=== PATIENT | female | born 1970 | race Caucasian/White ===

== ENCOUNTER → 2016-06-02 | Outpatient (CLI) | payer OTHER ==
[~2016-06-02] MED LIST: DFL150 PO; DTRSR/10 PO; FLVHFA110 INH; HYDR-5688 PO; LISI-461 PO; LPT40 PO; OMEP20CA9 PO; SPIR1TAB71 PO; SPIR1TAB72 PO; TPRSR/50 PO; TRAM-10 PO; VNTHFA/IN INH; meloxicam PO
--- NOTE | 2016-06-02 13:14 | DIAGNOSTIC IMAGING REPORT ---
L-SPINE MIN 4 VIEWS ROUTINE CLINICAL HISTORY: Low back pain COMPARISON STUDY: 12/06/2010 FINDINGS: There are surgical clips within the right upper quadrant. There is an S1 spina bifida occulta. No acute fractures or subluxations are visualized. There are mild multilevel degenerative changes. No destructive lesions are evident. IMPRESSION: Mild multilevel degenerative change. No fractures, subluxations, or destructive lesions are visualized. Electronically signed by: Vish Beal M.D. 06/02/2016 1:13 PM Dictated Date/Time: 06/02/2016 1:12 PM
== END | disposition home or self-care (01) ==
LOC: C.RADBC 10:41
PROVIDERS: ATTEND Anesthesiology
DX: M54.5 Low back pain (principal)

== ENCOUNTER → 2016-09-06 | Outpatient (CLI) | payer OTHER ==
[~2016-09-06] MED LIST changes: -DFL150 PO; -DTRSR/10 PO; -HYDR-5688 PO; -SPIR1TAB71 PO
== END | disposition home or self-care (01) ==
LOC: C.LABSPEC 12:41
PROVIDERS: ATTEND Internal Medicine
DX: J02.9 Acute pharyngitis, unspecified (principal)

== ENCOUNTER → 2016-12-13 | Outpatient (CLI) | payer OTHER ==
[2016-12-13 12:26] LABS: ALT/SGPT 123 U/L (12-78); BLOOD UREA NITROGEN 24 mg/dl (7-18); BUN/CREATININE RATIO 18.5 (10-20); CALCIUM 8.7 mg/dl (8.5-10.1); CARBON DIOXIDE 25 mmol/L (21-32); CHLORIDE 106 mmol/L (98-107); CHOLESTEROL 144 mg/dl (0-200); GLUCOSE 136 mg/dl (70-99); POTASSIUM 3.8 mmol/L (3.5-5.1); SODIUM 139 mmol/L (136-145); TRIGLYCERIDES 177 mg/dl (0-150); VERY LOW DENSITY LIPOPROT CALC 35 mg/dl
[2016-12-13 12:29] LABS: ALB/GLOB RATIO 0.9 (0.9-2); ALKALINE PHOSPHATASE 67 U/L (45-117); AST/SGOT 98 U/L (15-37); CHOLESTEROL/HDL RATIO 5.3; HDL CHOLESTEROL 27 mg/dl; LDL CHOLESTEROL CALCULATED 82 mg/dl
== END | disposition home or self-care (01) ==
LOC: C.LABBFT 07:48
PROVIDERS: ATTEND Internal Medicine
DX: Z00.00 Encounter for general adult medical examination without abnormal findings (principal); E78.5 Hyperlipidemia, unspecified; I10 Essential (primary) hypertension

== ENCOUNTER → 2016-12-14 | Outpatient (CLI) | payer OTHER ==
[2016-12-14 12:19] LABS: BASO % 0.7 %; BASO ABS # 0.05 K/uL (0-0.2); COMPLETE YES; EOS % 3.8 %; HEMATOCRIT 40.6 % (37-47); IG% 0.3 %; LYMPH % 30.8 %; LYMPH ABS # 2.34 K/uL (1.2-3.4); MEAN CELL VOLUME 95.8 fL (80-100); MEAN CORPUSCULAR HEMOGLOBIN 31.6 pg (25-34); MEAN PLATELET VOLUME 10.6 fL (7.4-10.4); NEUT % 60.4 %; PLATELET COUNT 275 K/uL (130-400); RED BLOOD COUNT 4.24 M/uL (4.2-5.4); WHITE BLOOD COUNT 7.59 K/uL (4.8-10.8)
[2016-12-14 12:42] LABS: ESTIMATED AVERAGE GLUCOSE 157 mg/dl; HA1C FLAG Normal (Normal)
[2016-12-14 12:46] LABS: BLOOD UREA NITROGEN 20 mg/dl (7-18)
== END | disposition home or self-care (01) ==
LOC: C.LABBFT 11:06
PROVIDERS: ATTEND Internal Medicine
DX: N93.8 Other specified abnormal uterine and vaginal bleeding (principal); E78.5 Hyperlipidemia, unspecified; R79.89 Other specified abnormal findings of blood chemistry; R73.01 Impaired fasting glucose; R94.5 Abnormal results of liver function studies

== ENCOUNTER → 2016-12-15 | Outpatient (CLI) | payer OTHER ==
[2016-12-15 12:27] LABS: URINE APPEARANCE CLEAR (CLEAR); URINE BILIRUBIN NEG (NEG); URINE COLOR YELLOW; URINE EPITHELIAL CELL AUTO >30 /lpf (0-5); URINE NITRITE NEG (NEG); URINE SPECIFIC GRAVITY 1.022 (1.000-1.030); UROBILINOGEN NEG (NEG)
[2016-12-15 12:32] LABS: REVIEW REQ? YES
[2016-12-15 12:33] LABS: MANUAL MICROSCOPIC REQUIRED? NO
== END | disposition home or self-care (01) ==
LOC: C.LABBFT 10:04
PROVIDERS: ATTEND Internal Medicine
DX: N93.8 Other specified abnormal uterine and vaginal bleeding (principal); E78.5 Hyperlipidemia, unspecified; R79.89 Other specified abnormal findings of blood chemistry; R73.01 Impaired fasting glucose; R94.5 Abnormal results of liver function studies

== ENCOUNTER → 2017-03-19 | Outpatient (CLI) | payer OTHER ==
[2017-03-19 17:17] LABS: ALT/SGPT 120 U/L (12-78); AST/SGOT 90 U/L (15-37); BLOOD UREA NITROGEN 14 mg/dl (7-18); BUN/CREATININE RATIO 12.5 (10-20); CALCIUM 7.8 mg/dl (8.5-10.1); CARBON DIOXIDE 23 mmol/L (21-32); CHLORIDE 105 mmol/L (98-107); CREATININE 1.13 mg/dl (0.60-1.20); GLUCOSE 183 mg/dl (70-99); POTASSIUM 4.1 mmol/L (3.5-5.1); SODIUM 139 mmol/L (136-145)
[2017-03-19 17:20] LABS: ALB/GLOB RATIO 0.8 (0.9-2); ALKALINE PHOSPHATASE 69 U/L (45-117)
[2017-03-20 05:56] LABS: ESTIMATED AVERAGE GLUCOSE 151 mg/dl; HA1C FLAG Normal (Normal)
== END | disposition home or self-care (01) ==
LOC: C.LABBFT 13:08
PROVIDERS: ATTEND Internal Medicine
DX: E78.5 Hyperlipidemia, unspecified (principal); I10 Essential (primary) hypertension; E11.9 Type 2 diabetes mellitus without complications; R79.89 Other specified abnormal findings of blood chemistry

== ENCOUNTER → 2017-03-20 | Outpatient (CLI) | payer OTHER ==
[2017-03-20 13:34] LABS: BLOOD UREA NITROGEN 11 mg/dl (7-18); BUN/CREATININE RATIO 10.9 (10-20); CALCIUM 8.5 mg/dl (8.5-10.1); CARBON DIOXIDE 22 mmol/L (21-32); CHLORIDE 107 mmol/L (98-107); GLUCOSE 146 mg/dl (70-99); POTASSIUM 3.7 mmol/L (3.5-5.1); SODIUM 139 mmol/L (136-145)
== END | disposition home or self-care (01) ==
LOC: C.LABBFT 10:20
PROVIDERS: ATTEND Internal Medicine
DX: I10 Essential (primary) hypertension (principal); E83.51 Hypocalcemia

== ENCOUNTER → 2017-03-29 | Outpatient (CLI) | payer OTHER ==
--- NOTE | 2017-03-29 12:07 | DIAGNOSTIC IMAGING REPORT ---
ULTRASOUND RIGHT UPPER QUADRANT ABDOMEN CLINICAL HISTORY: Elevated hepatic transaminases. COMPARISON STUDY: Abdominal CT dated 12/09/2013. TECHNIQUE: Real-time, grayscale, and color flow sonography of the right upper quadrant of the abdomen was performed. Images are reviewed in the transverse and longitudinal planes. FINDINGS: Liver: The liver is enlarged measuring over 20 cm in length. The liver demonstrates heterogeneously increased echotexture consistent with severe hepatic steatosis. Note that this degrades acoustic penetration of liver. There is no intrahepatic biliary ductal dilatation. The main portal vein is patent. Gallbladder: The gallbladder is surgically absent. The common bile duct measures up to 0.9 cm in diameter. Pancreas: Visualized portions of the pancreatic head and body are normal in appearance. Right kidney: Survey images of the right kidney demonstrate normal size and echotexture. There is no hydronephrosis. Ascites: None. IMPRESSION: 1. Hepatomegaly and severe hepatic steatosis. 2. The gallbladder surgically absent. Electronically signed by: Ziggy Salinas M.D. 03/29/2017 12:06 PM Dictated Date/Time: 03/29/2017 12:05 PM
== END | disposition home or self-care (01) ==
LOC: C.ULTR 11:24
PROVIDERS: ATTEND Internal Medicine
DX: R79.89 Other specified abnormal findings of blood chemistry (principal)

== ENCOUNTER 2017-06-03 12:29 | Emergency (ER) | payer OTHER ==
[~2017-06-03] VITALS: Ht 157.5 cm; Wt 125.0 kg
[2017-06-03 12:32] VITALS: TEMP 36.5; Ht 157.5 cm; Wt 125.0 kg
[2017-06-03 12:57] VITALS: O2SAT 97
[2017-06-03 13:11] LABS: HEMATOCRIT 45.4 % (37-47); HEMOGLOBIN 15.4 g/dL (12.0-16.0); MEAN CELL VOLUME 91.9 fL (80-100); MEAN CORPUSCULAR HEMOGLOBIN 31.2 pg (25-34); MEAN CORPUSCULAR HGB CONC 33.9 g/dl (32-36); MEAN PLATELET VOLUME 10.5 fL (7.4-10.4); PLATELET COUNT 236 K/uL (130-400); RED CELL DISTRIBUTION WIDTH CV 13.3 % (11.5-14.5); RED CELL DISTRIBUTION WIDTH SD 44.5 fL (36.4-46.3); WHITE BLOOD COUNT 11.11 K/uL (4.8-10.8)
--- NOTE | 2017-06-03 13:15 | DIAGNOSTIC IMAGING REPORT ---
CHEST ONE VIEW PORTABLE CLINICAL HISTORY: 46 years-old Female presenting with C01b - Chest pain. TECHNIQUE: Portable upright AP view of the chest was obtained. COMPARISON: 11/18/2015. FINDINGS: Cardiomediastinal silhouette normal. Lungs and pleural spaces clear. Osseous structures normal. Cholecystectomy clips noted. IMPRESSION: 1. No acute cardiopulmonary disease. Electronically signed by: Demond Gill M.D. 06/03/2017 1:13 PM Dictated Date/Time: 06/03/2017 1:13 PM
[2017-06-03 13:19] LABS: ALBUMIN 3.3 gm/dl (3.4-5.0); ALT/SGPT 94 U/L (12-78); AST/SGOT 88 U/L (15-37); BLOOD UREA NITROGEN 24 mg/dl (7-18); CALCIUM 8.1 mg/dl (8.5-10.1); CARBON DIOXIDE 23 mmol/L (21-32); CREATININE 1.32 mg/dl (0.60-1.20); GLUCOSE 164 mg/dl (70-99); POTASSIUM 4.2 mmol/L (3.5-5.1); SODIUM 135 mmol/L (136-145)
[2017-06-03 13:23] LABS: ALKALINE PHOSPHATASE 71 U/L (45-117); CKMB 0.8 ng/ml (0.5-3.6); PTT PATIENT 26.4 SECONDS (21.0-31.0); TOTAL PROTEIN 7.8 gm/dl (6.4-8.2)
[2017-06-03] MEDS ORDERED: OPTIRAY 320 IV PRN (13:30)
[2017-06-03] MEDS ORDERED: ONDANSETRON INJ 2 MG/ML 2 ML VIAL IV STA (14:12)
[2017-06-03] MEDS ORDERED: SODIUM CHLORIDE 0.9% 500ML 500 ML IV STA (14:12)
[2017-06-03] MEDS ORDERED: MoRPHine SULFATE 4 MG/ML 1 ML CARP\\VIAL IV STA (14:12)
--- NOTE | 2017-06-03 14:12 | EMERGENCY ROOM VISIT NOTE ---
History First contact with patient: 13:03 Chief Complaint: CHEST PAIN Stated Complaint: CHEST PAIN, PAIN IN JAW/NECK, FLANK, VOMITING Nursing Triage Summary: Patient c/o of palpitations, chest, Back, neck, and right arm pain since last night. Dizziness and SOB. History of Present Illness The patient is a 46 year old female who presents to the Emergency Room with complaints of chest pain that started around 9 AM yesterday morning. She describes the chest pain as an ache with occasional sharp shooting pains, constant, starts under her left breast and wraps around to her left upper back, worse with lying down, better with sitting up, 8/10. She has taken her prescribed tramadol, with no improvement in the pain. She states that she has had associated heart palpitations which is not unusual for her, but has also been having shortness of breath, dizziness, and feeling very fatigued, which is new. She states she has been feeling exhausted for the past few days, and today it took her over 20 minutes to get dressed because of fatigue. She also reports some pain in her right leg that started yesterday. She states this morning around 4 AM she woke up feeling nauseated and vomited several times. She did not take any of her prescribed medications today because of the nausea and vomiting. The patient is followed by Dr. Amador, retirement assistant, regarding her palpitations and family history of cardiomyopathy. She reports echocardiogram and EKG that were done 6 months ago that she believes were normal. She denies any headaches, vision changes, abdominal pain, diarrhea, bloody or black stools , hemoptysis, syncope, urinary symptoms, or rash. She does note some recent URI symptoms of cough and congestion last week, states these have gotten better. She denies any fevers, but has had some chills. She also notes for the past 4 months she has been dealing with a dental infection, she states she was treated with antibiotics 3 months ago, but the infection has come back, and she states she has been "poking a toothpick in the gums every day and pus comes out." Review of Systems A complete 10 point review of systems was reviewed with the patient with pertinent positives and negatives as per history of present illness. All else were negative. Past Medical/Surgical History Medical Problems: (1) Acute bronchitis (2) Asthma (3) Asthma with exacerbation (4) Asthmatic bronchitis (5) Benign hypertension (6) Bladder infection (7) Contusion of ribs (8) Fall (9) Fall (10) Female bladder prolapse (11) Female bladder prolapse (12) Finger laceration (13) Fracture of fifth finger, right, closed (14) Headache (15) Headache (16) Heart disease (17) Heel pain (18) Hyperlipidemia (19) Ovarian cyst (20) Ovarian cyst (21) Pharyngitis (22) Pneumonia (23) Rib contusion (24) Rib injury (25) Rib pain on right side (26) Urinary tract infection (27) UTI (urinary tract infection) (28) Work related injury Surgical Problems: (1) Cholecystectomy (2) History of - tubal ligation Family History Diabetes mellitus FH: gallbladder disease FH: heart disease FH: lung disease FHx: cancer Hypertension Seizures Social History Smoking Status: Never Smoker Alcohol Use: occasionally Drug Use: none Marital Status: Housing Status: lives with family Occupation Status: employed Current/Historical Medications Scheduled Atorvastatin (Lipitor), 40 MG PO DAILY Doxycycline Hyclate (Vibramycin), 100 MG PO BID Fluticasone Propionate (Flovent Hfa), 2 PUFFS INH BID Hctz/Spironolactone (Spironolactone/Hydrochlor 25-25 mg), 1 TAB PO DAILY Lisinopril (Lisinopril), 10 MG PO DAILY Meloxicam (Meloxicam), 15 MG PO DAILY Metformin Hcl (Glucophage), 500 MG PO BID Metoprolol Succinate (Metoprolol Succinate ER), 50 MG PO DAILY Omeprazole (Prilosec), 20 MG PO DAILY Scheduled PRN Albuterol Hfa (Ventolin Hfa), 2 PUFFS INH Q4H PRN for SOB/Wheezing Albuterol Sulf (Proventil 0.083% 2.5MG/3ML), 2.5 MG INH Q4H PRN for SOB/Wheezing Tramadol (Ultram), 50 MG PO TID PRN for Pain Allergies No known allergies Physical Exam Vital Signs Date Time Temp Pulse Resp B/P (MAP) Pulse Ox O2 Delivery O2 Flow Rate FiO2 06/03/17 18:59 118 18 117/76 96 06/03/17 17:59 111 24 132/99 95 Room Air 06/03/17 16:47 113 24 133/94 93 Room Air 06/03/17 15:19 113 24 141/94 93 Room Air 06/03/17 14:24 123 19 95 06/03/17 14:19 114 24 133/94 93 Room Air 06/03/17 14:19 133/94 06/03/17 14:17 164/129 06/03/17 13:59 115 17 06/03/17 13:29 124 16 06/03/17 13:00 97 Room Air 06/03/17 12:59 117 13 06/03/17 12:58 97 Room Air 06/03/17 12:57 97 Room Air 06/03/17 12:47 115 06/03/17 12:32 36.5 138 24 163/135 97 Room Air Physical Exam CONSTITUTIONAL: Pleasant and cooperative. No acute distress, but appears uncomfortable throughout exam. Mildly dehydrated, but otherwise well appearing and well nourished. Obese. HEENT: Normocephalic, atraumatic. Pupils equal, round and reactive to light, EOMI. TMs normal. Pharynx normal. Tacky mucous membranes. Poor dentition with multiple dental fractures and carious teeth. The left upper incisor is broken off at the gums, with mild gingival erythema and swelling. No purulent discharge noted. No periapical abscess noted. NECK: Supple, full active range of motion without discomfort. RESPIRATORY: Clear to auscultation bilaterally with no wheezing, crackles, rhonchi or stridor. Equal expansion bilaterally. CARDIOVASCULAR: Tachycardic. Regular rhythm with no murmurs, rubs or gallops. Normal peripheral perfusion. No edema. GASTROINTESTINAL: Soft, nontender, nondistended. No palpable masses or HSM. Bowel sounds present in all quadrants. MUSCULOSKELETAL: Full range of motion of all joints without discomfort. Tenderness to palpation of the right posterior calf. No erythema, warmth, or swelling appreciated. INTEGUMENTARY: No rash or other significant dermatologic conditions noted. NEUROLOGIC: Alert and oriented X 4 with normal affect. Cranial nerves II-XII grossly intact. No focal neurologic deficits noted. Normal strength and sensation in all 4 extremities. Normal speech. Normal gait observed. Medical Decision & Procedures ER Provider Diagnostic Interpretation: CHEST ONE VIEW PORTABLE CLINICAL HISTORY: 46 years-old Female presenting with C01b - Chest pain. TECHNIQUE: Portable upright AP view of the chest was obtained. COMPARISON: 11/18/2015. FINDINGS: Cardiomediastinal silhouette normal. Lungs and pleural spaces clear. Osseous structures normal. Cholecystectomy clips noted. IMPRESSION: 1. No acute cardiopulmonary disease. ----- (CHEST FOR PE) ANGIO WITH CLINICAL HISTORY: 46 years-old Female presenting with ^left sided CP, SOB, tachycardic, eval PE. TECHNIQUE: Multidetector CT angiography of the chest was performed after administration of intravenous contrast. 3-D volumetric and/or maximum intensity projection (MIP) images were subsequently reconstructed for review. IV contrast: 97 mL of Optiray 320. A dose lowering technique was used consistent with the principles of ALARA (as low as reasonably achievable). COMPARISON: Chest x-ray performed earlier the same day. CT DOSE (mGy.cm): The estimated cumulative dose is 610.06 mGy.cm. FINDINGS: [employer] Agent topogram: Surgical clips project over the right upper quadrant. Pulmonary vasculature: The study is suboptimal for the assessment of the pulmonary vascular tree secondary to respiratory motion artifact. Allowing for limited image quality, no central filling defect to suggest pulmonary embolus. Main pulmonary artery is not enlarged. No flattening of the interventricular septum. No intracardiac filling defect. No reflux of contrast into the hepatic veins. Remaining chest: On soft tissue windows, normal thyroid and thoracic inlet. No axillary, supraclavicular, hilar, or mediastinal lymphadenopathy. Normal aorta. Normal heart size. No pericardial or pleural effusion. Hepatic steatosis. Cholecystectomy clips. On lung windows, patchy groundglass opacity at the lung apices. Evaluation degraded by motion artifact. On bone windows, degenerative changes of the spine. IMPRESSION: 1. Allowing for suboptimal image quality, no evidence of pulmonary embolus. 2. Patchy groundglass opacity at the lung apices raises concern for infection. Atypical/viral pneumonia could cause this appearance among other potential etiologies. 3. Hepatic steatosis. ----- R VENOUS DOPP LOWER EXT UNILAT CLINICAL HISTORY: 46 years-old Female presenting with right calf pain. TECHNIQUE: Real-time grayscale and color and spectral Doppler ultrasound imaging of the veins of the right lower extremity was performed. Compression and augmentation were also utilized. COMPARISON: None. FINDINGS: Right: Common femoral vein: Patent. Greater saphenous vein: Patent. Deep femoral vein: Patent. Femoral vein: Patent. Popliteal vein: Patent. Calf veins: Patent. Other: None. IMPRESSION: No evidence of deep venous thrombosis. Laboratory Results 06/03/17 12:47 06/03/17 12:47 Test 06/03/17 12:47 06/03/17 15:40 Red Blood Count 4.94 M/uL (4.2-5.4) Mean Corpuscular Volume 91.9 fL (80-100) Mean Corpuscular Hemoglobin 31.2 pg (25-34) Mean Corpuscular Hemoglobin Concent 33.9 g/dl (32-36) RDW Standard Deviation 44.5 fL (36.4-46.3) RDW Coefficient of Variation 13.3 % (11.5-14.5) Mean Platelet Volume 10.5 fL (7.4-10.4) Erythrocyte Sedimentation Rate 51 mm/hr (0-21) Prothrombin Time 10.5 SECONDS (9.0-12.0) Prothromb Time International Ratio 1.0 (0.9-1.1) Activated Partial Thromboplast Time 26.4 SECONDS (21.0-31.0) Partial Thromboplastin Ratio 1.0 Anion Gap 9.0 mmol/L (3-11) Est Creatinine Clear Calc Drug Dose 68.0 ml/min Estimated GFR () 56.3 Estimated GFR (Non- 48.6 BUN/Creatinine Ratio 18.2 (10-20) Calcium Level 8.1 mg/dl (8.5-10.1) Total Bilirubin 0.8 mg/dl (0.2-1) Aspartate Amino Transf (AST/SGOT) 88 U/L (15-37) Alanine Aminotransferase (ALT/SGPT) 94 U/L (12-78) Alkaline Phosphatase 71 U/L (45-117) Total Creatine Kinase 225 U/L (26-192) Creatine Kinase MB 0.8 ng/ml (0.5-3.6) Creatine Kinase MB Ratio 0.4 (0-3.0) C-Reactive Protein 2.63 mg/dl (0-0.29) Total Protein 7.8 gm/dl (6.4-8.2) Albumin 3.3 gm/dl (3.4-5.0) Globulin 4.5 gm/dl (2.5-4.0) Albumin/Globulin Ratio 0.7 (0.9-2) Lipase 254 U/L (73-393) Procalcitonin 0.22 ng/ml (0-0.5) Human Chorionic Gonadotropin, Qual NEG (NEG) Troponin I < 0.015 ng/ml (0-0.045) Medications Administered Medications (Trade) Dose Ordered Sig/Gregorio Route Start Time Stop Time Status Last Admin Dose Admin Sodium Chloride 500 ml @ 999 mls/hr Q31M STAT IV 06/03/17 14:12 06/03/17 14:42 DC 06/03/17 14:32 999 MLS/HR Morphine Sulfate (MoRPHine SULFATE INJ) 4 mg NOW STAT IV 06/03/17 14:12 06/03/17 14:14 DC 06/03/17 15:49 4 MG Ondansetron HCl (Zofran Inj) 4 mg NOW STAT IV 06/03/17 14:12 06/03/17 14:14 DC 06/03/17 14:32 4 MG Doxycycline Hyclate (Vibramycin Cap) 100 mg NOW STAT PO 06/03/17 17:46 06/03/17 17:48 DC 06/03/17 17:58 100 MG ECG Indication: chest pain, SOB/dyspnea, tachycardia Rate (beats per minute): 124 Rhythm: sinus tachycardia Findings: nonspecific-ST abn (Lateral), Q waves (Inferior and anterior) Change: When compared to EKG from 11/18/2015, the inferior infarct and anterior infarct are now present and normal sinus rhythm is replaced with sinus tachycardia. Nonspecific ST changes in the lateral leads also appear to be new. Medical Decision CC: Patient presenting with complaint of chest pain, shortness of breath Interpretation of Labs: Mild leukocytosis, no anemia, no significant electrolyte abnormalities, mildly elevated BUN and creatinine, mildly elevated transaminase, normal T bili, normal lipase. Elevated inflammatory markers. Normal pro-calcitonin level. Troponin negative 2. Normal coagulation factors. Negative serum . Differential Diagnosis: Includes, but not limited to acute coronary syndrome, pulmonary embolism, pneumothorax, pericarditis, myocarditis, endocarditis, anxiety, musculoskeletal pain, GERD, costochondritis, pneumonia, cardiac arrhythmia, dehydration, electrolyte abnormality, anemia, among others. Medication Reconciliation: I attest that I have personally reviewed the patient' s current medication list. Initial vital signs review: I reviewed the patient's vital signs and interpret them as follows: T: Afebrile; BP: Hypertensive; HR: Tachycardic; RR: Tachypneic; Pulse Ox: Within normal limits on room air. Blood pressure screening: The patient was found to have an elevated blood pressure and was referred to their primary doctor for recheck and further treatment. Summary: Patient was evaluated at bedside, history and physical exam performed. Patient is alert and oriented, no acute distress, resting calmly in the stretcher. Patient is noted to be quite tachycardic, with heart rates in the 130s to 140s. She states that her baseline heart rate is low 100s, and she did not take her medications today. Lungs are clear, diminished in the bases. No abnormal heart sounds on auscultation. Patient appears mildly dehydrated. She is noted to have very poor dentition. EKG reviewed at bedside, noting sinus tachycardia with inferior and anterior Q waves noted by my interpretation. Orders were placed at bedside for labs, blood cultures 3, chest x-ray, chest CT to evaluate for PE. IV morphine and Zofran were ordered for pain and nausea, IV normal saline bolus for hydration. Patient discussed with Dr. Deshpande, who agrees with my assessment and plan. Labs reviewed as above, noting mild leukocytosis and elevation inflammatory markers. Troponin is negative x2 with constant chest pain for more than 12 hours. Chest x-ray is unremarkable. CT of the chest is negative for pulmonary embolus, but does note some basilar ground glass opacities which may represent an early infectious process. EKG is compared to previous, inferior and anterior infarct appeared to be new compared to an EKG from 1.5 years ago. I spoke with Dr. Gonzalez, retirement assistant, who reviewed the patient's chart and feels that her EKG changes are not significant when compared to other previous EKGs on their records. He also feels ACS is unlikely due to the length of her symptoms with negative cardiac markers. I discussed all results with the patient and plan for discharge. Given the concern for possible atypical pneumonitis on CT, will treat the patient with doxycycline, first dose given in the ED and Rx sent to pharmacy Patient reassessed multiple times throughout ED stay, she reports that her symptoms have much improved while being in the emergency department. She states her dizziness resolved after receiving IV fluids. She states her chest pain and shortness of breath are also resolved. Her tachycardia is improving after IV fluids. Patient was encouraged to follow closely with her primary care provider, and was given strict return precautions should her symptoms worsen, she verbalized understanding. Patient was discharged home in stable condition and ambulatory. Impression Primary Impression: Left sided chest pain Additional Impressions: Tachycardia Pneumonitis Departure Information Dispostion Home / Self-Care Condition GOOD Prescriptions Doxycycline Hyclate (VIBRAMYCIN) 100 Mg Cap 100 MG PO BID for 10 Days, #20 CAP Prov: Nereida Adkins, DAVID 06/03/17 Referrals Joaquina Gonsalez M.D. (PCP) Patient Instructions ED Chest Pain Atypical Unkn Cause, ED Pneumonia Adult, [facility] Additional Instructions You have been treated in the Emergency Department for your chest pain and shortness of breath. Laboratory results and imaging studies have ruled out any emergent causes for your symptoms which would warrant admission or surgery. Your CT scan of your chest is suspicious for developing pneumonia. You were prescribed doxycycline to be taken twice a day for 10 days. This is an antibiotic. Make sure that you take this antibiotic with food and stay upright after taking it for at least 30 minutes to prevent heartburn symptoms. All antibiotics have the potential to cause diarrhea. Stop this medication and contact a medical provider if you were to develop any significant adverse side effects including: wheezing, shortness of breath, passing out, vomiting, or a diffuse rash. Always take antibiotics as directed and COMPLETE the ENTIRE course regardless of the improvement of your symptoms. For pain control, you can use the following [id number] medicines (if >12 yo): - Regular strength (325mg/tab) Tylenol (acetaminophen) 2 tabs every 4-6 hours as needed. Do not exceed 10 tablets in a 24 hour period. Avoid taking more than 3000 mg of Tylenol per day. This includes any other sources of acetaminophen you may take on a regular basis. - Regular strength (200 mg/tab) Advil (ibuprofen) 1-2 tabs every 4-6 hours as needed. Do not exceed a dose of 2400 mg per day. You may also take your tramadol as prescribed. Drink plenty of fluids to stay well hydrated. Please follow-up with your primary care provider in the next 1-2 days for reassessment of your condition. Please return to the emergency department for any worsening symptoms, including worsening or changing chest pain, worsening shortness of breath, severe dizziness or passing out, coughing up or vomiting blood, fevers/chills, or any other concerns. Work Instructions Return To Work: 2 days Problem Qualifiers
[2017-06-03] MEDS ORDERED: GLC/500 PO (15:01)
[2017-06-03] MEDS ORDERED: ALBINS/ INH (15:01)
[2017-06-03] MEDS ORDERED: MELO15TA4 PO (15:01)
--- NOTE | 2017-06-03 15:01 | DIAGNOSTIC IMAGING REPORT ---
(CHEST FOR PE) ANGIO WITH CLINICAL HISTORY: 46 years-old Female presenting with ^left sided CP, SOB, tachycardic, eval PE. TECHNIQUE: Multidetector CT angiography of the chest was performed after administration of intravenous contrast. 3-D volumetric and/or maximum intensity projection (MIP) images were subsequently reconstructed for review. IV contrast: 97 mL of Optiray 320. A dose lowering technique was used consistent with the principles of ALARA (as low as reasonably achievable). COMPARISON: Chest x-ray performed earlier the same day. CT DOSE (mGy.cm): The estimated cumulative dose is 610.06 mGy.cm. 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 Pulmonary vasculature: The study is suboptimal for the assessment of the pulmonary vascular tree secondary to respiratory motion artifact. Allowing for limited image quality, no central filling defect to suggest pulmonary embolus. Main pulmonary artery is not enlarged. No flattening of the interventricular septum. No intracardiac filling defect. No reflux of contrast into the hepatic veins. Remaining chest: On soft tissue windows, normal thyroid and thoracic inlet. No axillary, supraclavicular, hilar, or mediastinal lymphadenopathy. Normal aorta. Normal heart size. No pericardial or pleural effusion. Hepatic steatosis. Cholecystectomy clips. On lung windows, patchy groundglass opacity at the lung apices. Evaluation degraded by motion artifact. On bone windows, degenerative changes of the spine. IMPRESSION: 1. Allowing for suboptimal image quality, no evidence of pulmonary embolus. 2. Patchy groundglass opacity at the lung apices raises concern for infection. Atypical/viral pneumonia could cause this appearance among other potential etiologies. 3. Hepatic steatosis. Electronically signed by: Demond Gill M.D. 06/03/2017 2:59 PM Dictated Date/Time: 06/03/2017 2:53 PM
--- NOTE | 2017-06-03 16:37 | DIAGNOSTIC IMAGING REPORT ---
R VENOUS DOPP LOWER EXT UNILAT CLINICAL HISTORY: 46 years-old Female presenting with right calf pain. TECHNIQUE: Real-time grayscale and color and spectral Doppler ultrasound imaging of the veins of the right lower extremity was performed. Compression and augmentation were also utilized. COMPARISON: None. FINDINGS: Right: Common femoral vein: Patent. Greater saphenous vein: Patent. Deep femoral vein: Patent. Femoral vein: Patent. Popliteal vein: Patent. Calf veins: Patent. Other: None. IMPRESSION: No evidence of deep venous thrombosis. Electronically signed by: Demond Gill M.D. 06/03/2017 4:36 PM Dictated Date/Time: 06/03/2017 4:35 PM
[2017-06-03] MEDS ORDERED: DOXYCYCLINE HYCLATE 100 MG CAP PO STA (17:46)
[2017-06-03] MEDS ORDERED: DOXY100C PO (18:08)
[2017-06-03 18:59] VITALS: BP 117/76; PULSE 118; O2SAT 96
== END 2017-06-03 18:59 | disposition home or self-care (01) ==
LOC: C.EDB 12:30 → C.EDC 18:59
DX: R07.9 Chest pain, unspecified (principal); R00.0 Tachycardia, unspecified; J18.9 Pneumonia, unspecified organism; R42 Dizziness and giddiness; S02.5XXA Fracture of tooth (traumatic), initial encounter for closed fracture; X58.XXXA Exposure to other specified factors, initial encounter; K02.9 Dental caries, unspecified; J45.909 Unspecified asthma, uncomplicated; I10 Essential (primary) hypertension; E78.5 Hyperlipidemia, unspecified; Z91.81 History of falling; Z87.01 Personal history of pneumonia (recurrent); Z87.440 Personal history of urinary (tract) infections; Z90.49 Acquired absence of other specified parts of digestive tract; Z98.51 Tubal ligation status; Z83.3 Family history of diabetes mellitus; Z82.49 Family history of ischemic heart disease and other diseases of the circulatory system; Z82.0 Family history of epilepsy and other diseases of the nervous system; Z79.899 Other long term (current) drug therapy

== ENCOUNTER → 2017-06-19 | Outpatient (CLI) | payer OTHER ==
[~2017-06-19] MED LIST changes: +ALBINS/ INH; +GLC/500 PO; +MELO-83 PO; -meloxicam PO
[2017-06-19 17:52] LABS: ALBUMIN 3.7 gm/dl (3.4-5.0); ALT/SGPT 125 U/L (12-78); BLOOD UREA NITROGEN 14 mg/dl (7-18); CALCIUM 8.8 mg/dl (8.5-10.1); CARBON DIOXIDE 26 mmol/L (21-32); CREATININE 1.29 mg/dl (0.60-1.20); GLUCOSE 127 mg/dl (70-99); POTASSIUM 3.9 mmol/L (3.5-5.1); SODIUM 138 mmol/L (136-145)
[2017-06-19 17:55] LABS: ALKALINE PHOSPHATASE 77 U/L (45-117); AST/SGOT 120 U/L (15-37); TOTAL PROTEIN 8.1 gm/dl (6.4-8.2)
[2017-06-20 06:02] LABS: HEMOGLOBIN A1C 6.1 % (4.5-5.6)
== END | disposition home or self-care (01) ==
LOC: C.LABBFT 14:13
PROVIDERS: ATTEND Internal Medicine
DX: Z00.00 Encounter for general adult medical examination without abnormal findings (principal); E11.9 Type 2 diabetes mellitus without complications; R79.89 Other specified abnormal findings of blood chemistry; E55.9 Vitamin D deficiency, unspecified; E83.51 Hypocalcemia; G47.00 Insomnia, unspecified

== ENCOUNTER → 2017-12-18 | Outpatient (CLI) | payer OTHER ==
[2017-12-18 13:07] LABS: HEMOGLOBIN A1C 6.2 % (4.5-5.6)
[2017-12-18 13:36] LABS: ALBUMIN 3.4 gm/dl (3.4-5.0); ALKALINE PHOSPHATASE 67 U/L (45-117); ALT/SGPT 19 U/L (12-78); AST/SGOT 13 U/L (15-37); BLOOD UREA NITROGEN 37 mg/dl (7-18); CALCIUM 8.8 mg/dl (8.5-10.1); CARBON DIOXIDE 23 mmol/L (21-32); CHOLESTEROL 137 mg/dl (0-200); CREATININE 1.76 mg/dl (0.60-1.20); GLUCOSE 123 mg/dl (70-99); LDL CHOLESTEROL CALCULATED 73 mg/dl; POTASSIUM 4.7 mmol/L (3.5-5.1); SODIUM 138 mmol/L (136-145); TOTAL PROTEIN 7.5 gm/dl (6.4-8.2)
== END | disposition home or self-care (01) ==
LOC: C.LABBFT 09:31
PROVIDERS: ATTEND Internal Medicine
DX: Z00.00 Encounter for general adult medical examination without abnormal findings (principal); R10.2 Pelvic and perineal pain; E78.5 Hyperlipidemia, unspecified; I10 Essential (primary) hypertension; M54.9 Dorsalgia, unspecified; E11.9 Type 2 diabetes mellitus without complications; E55.9 Vitamin D deficiency, unspecified